=== PATIENT | female | born 1995 ===

== ENCOUNTER 2024-07-06 10:45 | Outpatient (CLI) | payer OTHER | END 2024-07-06 10:52 | disposition home or self-care (01) | LOC: PRENATAL 10:45 | PROVIDERS: ATTEND Obstetrics & Gynecology Maternal & Fetal Medicine | DX: O44.00 Complete placenta previa NOS or without hemorrhage, unspecified trimester (principal); O09.219 Supervision of pregnancy with history of pre-term labor, unspecified trimester; O36.1999 Maternal care for other isoimmunization, unspecified trimester, other fetus; Z3A.31 31 weeks gestation of pregnancy ==